=== PATIENT | female | born 1945 | race Caucasian/White ===

== ENCOUNTER 2017-08-31 10:45 | Emergency (ER) | payer MEDICARE, OTHER ==
[~2017-08-31] VITALS: Ht 157.5 cm; Wt 76.0 kg
[2017-08-31] MEDS ORDERED: BLOOD PRESSURE PO (10:59)
[2017-08-31] MEDS ORDERED: ALLO100T PO (10:59)
[2017-08-31] MEDS ORDERED: LEVO25TA9 PO (10:59)
[2017-08-31] MEDS ORDERED: ASPI-556 PO (10:59)
[2017-08-31 13:25] VITALS: BP 135/75
== END 2017-08-31 13:37 | disposition home or self-care (01) ==
LOC: EMS 10:49
DX: M17.12 Unilateral primary osteoarthritis, left knee (principal); I10 Essential (primary) hypertension; I48.91 Unspecified atrial fibrillation
CPT/HCPCS: 93971; 99284

== ENCOUNTER 2025-02-24 17:05 | Emergency (ER) | payer MEDICARE, OTHER ==
[~2025-02-24] VITALS: Ht 162.6 cm; Wt 77.2 kg
[~2025-02-24 17:05] MED LIST: ALLO-97 PO; ASPI-556 PO; BLOOD PRESSURE PO; LEVO25TA9 PO
[2025-02-24 17:47] VITALS: BP 164/78; PULSE 66; RESP 14; TEMP 98.1; O2SAT 96
[2025-02-24 17:53] LABS: PLATELET COUNT (AUTO) 188 K/uL (150-450); RED BLOOD CELL COUNT(AUTO) 3.77 MIL/uL (4.00-5.20); RED CELL DISTRIBUTION WIDTH 16.7 % (11.5-14.5); WHITE BLOOD COUNT (AUTO) 8.8 K/uL (4.5-11.0)
[2025-02-24 18:03] LABS: CALCIUM, TOTAL 6.9 mg/dL (8.8-10.5); CREATININE 1.07 mg/dL (0.60-1.30); GLOMERULAR FILTR. RATE CALC 50.0 mL/min (>60); GLUCOSE,RANDOM 105.0 mg/dL (70-110); SODIUM SERUM 140.0 mmol/L (136-145); UREA NITROGEN, BLOOD 15.0 mg/dL (7-18)
[2025-02-24 18:19] LABS: COVID AG,FIA SOURCE NASAL SWAB
[2025-02-24] MEDS ORDERED: FERR325T23 PO (18:37)
[2025-02-24] MEDS ORDERED: PANT40TA54 PO (18:37)
[2025-02-24] MEDS ORDERED: PARO-37 PO (18:37)
[2025-02-24] MEDS ORDERED: CALC-26 PO (18:37)
[2025-02-24] MEDS ORDERED: ATOR20TA65 PO (18:37)
[2025-02-24] MEDS ORDERED: GABA-529 PO (18:37)
[2025-02-24] MEDS ORDERED: LEVO200T10 PO (18:37)
[2025-02-24 18:40] LABS: SARS-COV2 (COVID) ANTIGEN,FIA Negative (Negative)
== END 2025-02-24 21:08 | disposition home or self-care (01) ==
LOC: EMS 17:05
DX: F20.9 Schizophrenia, unspecified (principal); I11.0 Hypertensive heart disease with heart failure; I50.9 Heart failure, unspecified; E03.9 Hypothyroidism, unspecified; I48.91 Unspecified atrial fibrillation; F03.911 Unspecified dementia, unspecified severity, with agitation; Z90.89 Acquired absence of other organs; Z90.49 Acquired absence of other specified parts of digestive tract; Z98.890 Other specified postprocedural states; Z79.899 Other long term (current) drug therapy; Z20.822 Contact with and (suspected) exposure to COVID-19
CPT/HCPCS: 99283; 87426; 80048; 85025; 36415; G0480